=== PATIENT | male | born 1950 | race Caucasian/White ===

== ENCOUNTER → 2016-08-20 | Outpatient (CLI) | payer MEDICARE, OTHER | LOC: KOH-I 08:30 | DX: N28.1 Cyst of kidney, acquired (principal) | CPT/HCPCS: 76775 ==

== ENCOUNTER 2020-09-09 19:38 | Inpatient (IN) | payer MEDICARE ==
[~2020-09-09] VITALS: Ht 167.6 cm; Wt 72.7 kg
[2020-09-09 20:17] LABS: HEMOGLOBIN 11.5 gm/dl (14.0-17.5); RED BLOOD COUNT 4.05 M/UL (4.20-5.50); WHITE BLOOD COUNT 7.7 K/UL (4.5-11.0)
[2020-09-09 21:40] LABS: BUN/CREATININE RATIO 15 (0-10)
[2020-09-09 22:43] LABS: BUN/CREATININE RATIO 16 (0-10)
[2020-09-10] MEDS ORDERED: AMITRIPTYLINE100 MG PO (00:06)
[2020-09-10] MEDS ORDERED: FUROSEMIDE20 MG PO (00:06)
[2020-09-10] MEDS ORDERED: BUPROPION HCL150 M1 PO (00:07)
[2020-09-10] MEDS ORDERED: BACLOFEN10 MG PO (00:08)
[2020-09-10] MEDS ORDERED: LISINOPRIL-HCT1 EAC2 PO (00:09)
[2020-09-10] MEDS ORDERED: WELLBUTRIN SR200 MG PO (00:11)
[2020-09-10] MEDS ORDERED: POTASSIUM99 M1 PO (00:12)
[2020-09-10] MEDS ORDERED: MELATONIN300 MCG PO (00:13)
[2020-09-10] MEDS ORDERED: B-12500 MCG PO (00:14)
[2020-09-10] MEDS ORDERED: GARLIC OIL1000 MG PO (00:15)
[2020-09-10] MEDS ORDERED: CINNAMON500 MG PO (00:16)
[2020-09-10] MEDS ORDERED: SAW PALMETTO 1160 MG PO (00:16)
[2020-09-10] MEDS ORDERED: VITAMIN E PO (00:17)
[2020-09-10] MEDS ORDERED: IRON PO (00:18)
[2020-09-10 04:07] LABS: HEMOGLOBIN 10.6 gm/dl (14.0-17.5); RED BLOOD COUNT 3.7 M/UL (4.20-5.50); WHITE BLOOD COUNT 6.4 K/UL (4.5-11.0)
[2020-09-11 01:29] LABS: BUN/CREATININE RATIO 15 (0-10)
[2020-09-11 09:55] LABS: BUN/CREATININE RATIO 12 (0-10)
[2020-09-11] MEDS ORDERED: VITAMIN D325 MC6 PO (16:02)
== END 2020-09-11 13:59 | disposition home or self-care (01) | DRG 644 ==
LOC: ER1 19:38 → CDU 22:17 → MED SURG 4 22:17
PROVIDERS: Emergency Medicine; Internal Medicine; ADMIT Internal Medicine
DX: E22.2 Syndrome of inappropriate secretion of antidiuretic hormone (principal); N17.9 Acute kidney failure, unspecified; E87.2 Acidosis; F32.9 Major depressive disorder, single episode, unspecified; F41.9 Anxiety disorder, unspecified; E86.0 Dehydration; Z20.822 Contact with and (suspected) exposure to COVID-19; I12.9 Hypertensive chronic kidney disease with stage 1 through stage 4 chronic kidney disease, or unspecified chronic kidney disease; E55.9 Vitamin D deficiency, unspecified; N18.30 Chronic kidney disease, stage 3 unspecified; G47.00 Insomnia, unspecified; D63.1 Anemia in chronic kidney disease; E83.39 Other disorders of phosphorus metabolism; T50.995A Adverse effect of other drugs, medicaments and biological substances, initial encounter; Z96.641 Presence of right artificial hip joint; Z83.3 Family history of diabetes mellitus
CPT/HCPCS: 0240U; 36415; 70450; 71045; 80048; 80053; 80307; 81001; 82436; 82533; 82550; 82553; 83690; 83735; 83874; 83935; 84100; 84133; 84300; 84439; 84443; 84484; 85025; 85027; 93005; 97161; 99285; J1650; J7030